=== PATIENT | female | born 1950 | race Caucasian/White ===

== ENCOUNTER 2017-02-19 14:15 | Observation (INO) | payer OTHER ==
--- NOTE | 2017-02-19 14:26 | PDOC ---
History of Present Illness - General History Source: Patient Exam Limitations: No Limitations - History of Present Illness Initial Comments: 02/19/17 14:56 The patient is a 66 year old female, with a significant past medical history of scoliosis and depression, who presents to the emergency department with the sudden onset of SOB, lightheadedness, UE and LE numbness/tingling, and nausea. The patient reports earlier today pushing on her trunk and hearing a click at the base of her skull/neck with no immediate symptoms. She reports after arriving home, having a sudden onset of increased perspirations, chills, dizziness, headache, weakness, palpitations, and UE/ LE numbness and tingling ( worse in the LEs). She reports following the event having continued symptoms with the development of SOB, fuzzy like vision, and nausea accompanied with sensations of passing out. She denies any LOC during her symptomatic episode. She reports feeling her normal baseline this morning. She denies recent fevers, or illness. She denies recent abdominal pain, vomit, diarrhea or constipation. She denies recent dysuria, frequency, urgency or hematuria. She denies recent chest pain. Upon ED arrival the patient is noted to be bradycardic, for which she was hospitalized for 2 years prior. Allergies: See Nursing Notes. Past surgical history: Tonsillectomy (over 40 years ago) Social history: Nonsmoker. Denies EtOH use and recreational drug use. Primary Care Physician: Dr. Cristofer Rodríguez <Cristofer Stewart - Last Filed: 02/19/17 15:06> - General History Source: Patient Exam Limitations: No Limitations <Silvia Murdock - Last Filed: 02/19/17 17:39> - General Stated Complaint: TINGLING TO EXTREMITIES, NAUSEA, SOB Time Seen by Provider: 02/19/17 14:18 Past History <Cristofer Stewart - Last Filed: 02/19/17 15:06> <Silvia Murdock - Last Filed: 02/19/17 17:39> - Past Medical History Allergies/Adverse Reactions: Allergies Allergy/AdvReac Type Severity Reaction Status Date / Time codeine Allergy Rapid Verified 02/19/17 14:19 heartbeat, SOB, vomiting erythromycin base Allergy Stomach Verified 02/19/17 14:19 [Erythromycin Base] cramps oxycodone HCl [From Percocet] Allergy Rapid Verified 02/19/17 14:19 heartbeat, SOB, vomiting. Dust, pollens, molds Allergy Uncoded 07/02/14 10:45 Home Medications: Ambulatory Orders Venlafaxine HCl [Effexor -] 150 mg PO DAILY 02/19/17 Review of Systems - Review of Systems Able to Perform ROS?: Yes Comments:: 02/19/17 14:28 GENERAL/CONSTITUTIONAL: . No: fever, chills, loss of appetite. HEAD, EYES, EARS, NOSE AND THROAT: No: change in vision, ear pain, discharge, sore throat, throat swelling. CARDIOVASCULAR: +lightheadedness and palpitations. No: chest pain, syncope RESPIRATORY: +SOB. No: cough, wheezing, hemoptysis, stridor. GASTROINTESTINAL: +nausea. No: vomiting, diarrhea, abdominal cramping, rectal bleeding, constipation. GENITOURINARY: No: dysuria, hematuria, frequency, urgency, flank pain. MUSCULOSKELETAL: No: back pain, neck pain, joint pain, muscle swelling or pain SKIN : No: lesions, pallor, rash or easy bruising. NEUROLOGIC: +dizziness, headache, and UE+LE tingling/numbness. No: paresthesias ENDOCRINE: No: unexplained weight gain or loss HEMATOLOGIC/LYMPHATIC: No: anemia, easy bleeding, swelling nodes. <Cristofer Stewart - Last Filed: 02/19/17 15:06> *Physical Exam - Vital Signs Last Vital Signs Temp Pulse Resp BP Pulse Ox 97.5 F L 52 L 18 117/72 100 02/19/17 14:15 02/19/17 14:15 02/19/17 14:15 02/19/17 14:15 02/19/17 14:15 - Physical Exam Comments: 02/19/17 15:02 GENERAL: The patient is in no acute distress. HEAD: Normal with no signs of trauma. EYES: PERRLA, EOMI, sclera anicteric, conjunctiva clear. ENT: Ears normal, nares patent, oropharynx clear without exudates. Moist mucous membranes. NECK: Normal range of motion, supple without lymphadenopathy, JVD, or masses. LUNGS: Breath sounds equal, clear to auscultation bilaterally. No wheezes, and no crackles. HEART: +Bradycardia. Regular rate and rhythm, normal S1 and S2 without murmur, rub or gallop. ABDOMEN: Soft, nontender, normoactive bowel sounds. No guarding, no rebound. No masses palpable. EXTREMITIES: Normal range of motion, no edema. No clubbing or cyanosis. No erythema, or tenderness. NEUROLOGICAL: Cranial nerves II through XII grossly intact. Normal speech. No focal neurological deficits. MUSCULOSKELETAL: Back non-tender to palpation, no CVA tenderness SKIN: Warm, Dry, normal turgor, no rashes or lesions noted. <Cristofer Stewart - Last Filed: 02/19/17 15:06> Heart Score/ECG Review #1 ECG reviewed & interpreted by me at: 14:23 02/19/17 14:23 Sinus rhythm, rate of 50 bpm [place] nml Sinus bradycardia No Pr prolongation No ST elevation or depression Nml T waves <Silvia Murdock - Last Filed: 02/19/17 17:39> ED Treatment Course - LABORATORY CBC & Chemistry Diagram: 02/19/17 14:25 02/19/17 14:25 <Cristofer Stewart - Last Filed: 02/19/17 15:06> - LABORATORY CBC & Chemistry Diagram: 02/19/17 14:55 02/19/17 14:55 <Silvia Murdock - Last Filed: 02/19/17 17:39> Medical Decision Making - Medical Decision Making 02/19/17 14:23 A portion of this note was documented by scribe services under my direction. I have reviewed the details of the note, within reason, and agree with the documentation with the following case summary and management plan written by me. Nursing documentation reviewed and incorporated into medical decision making 02/19/17 14:24 This is a 66 yo F with no significant past medical history, who presents to the ER with a complaint of neck pain, tingling in extremities, shortness of breath PT states she was in her usual state of health until just before arrival to the ER PT states she was closing the trunk of her car, felt something snap/crack at the base of her skull/upper neck She walked into [employer] feeling fine Was there for approximately 15-20 minutes After this, she noted weakness, sweating, tingling of her extremities, diaphoresis Since then she has had tingling in her extremities 02/19/17 15:11 Labs hemolyzed and were re sent 02/19/17 15:27 Laboratory Tests 02/19/17 02/19/17 02/19/17 14:55 14:55 14:55 WBC 6.6 D Hgb 13.8 Hct 41.3 Plt Count 208 Neutrophils % 42.9 D Lymphocytes % 46.5 H D INR 1.04 Sodium 136 Potassium 4.2 Chloride 103 Carbon Dioxide 22 BUN 14 Creatinine 0.6 Random Glucose 95 Creatine Kinase 02/19/17 14:55 WBC Hgb Hct Plt Count Neutrophils % Lymphocytes % INR Sodium Potassium Chloride Carbon Dioxide BUN Creatinine Random Glucose Creatine Kinase 64 02/19/17 15:59 Case reviewed with ELIGIO Herrera Suggests evaluation for dissection Case reviewed with Dr Mills Will send pt to MRI Admit to Hospitalist Service Case reviewed with Dr. Gilliam 02/19/17 17:23 Pt returned from MRI Reports headache Will give Tylenol IV 02/19/17 17:39 <Silvia Murdock - Last Filed: 02/19/17 17:39> *DC/Admit/Observation/Transfer - Attestations Scribe Attestion: 02/19/17 14:27 Documentation prepared by Cristofer Stewart, acting as medical reception for Silvia Murdock MD. <Cristofer Stewart - Last Filed: 02/19/17 15:06> - Discharge Dispostion Admit: Yes <Silvia Murdock - Last Filed: 02/19/17 17:39> Diagnosis at time of Disposition: Bradycardia - Discharge Dispostion Condition at time of disposition: Stable - Referrals Referrals: Cristofer Rodríguez MD [Primary Care Provider] -
[2017-02-19 15:15] LABS: BASOPHIL 0.7 % (0-2.0); EOSINOPHIL 0.8 % (0-4.5); INR 1.04 (0.82-1.09); MCH 30.6 pg (25.7-33.7); MCHC 33.5 g/dl (32.0-36.0); MEAN CELL VOLUME 91.3 fl (80-96); MEAN PLT VOLUME 9.9 fl (7.5-11.1); NEUTROPHILS 42.9 % (42.8-82.8); PLATELET COUNT 208 K/MM3 (134-434); PROTHROMBIN TIME (PATIENT) 11.6 SEC (10.2-13.0); RDW 11.7 % (11.6-15.6); WHITE BLOOD COUNT 6.6 K/mm3 (4.0-10.0)
[2017-02-19 15:22] LABS: ALBUMIN 4.1 g/dl (3.5-5.0); ALK PHOS 66 U/L (32-92); ANION GAP 11 (8-16); BILIRUBIN,TOTAL 0.6 mg/dl (0.2-1.0); CALCIUM 9.4 mg/dl (8.4-10.2); CO2 22 mmol/L (22-28); CPK(DFH) 64 IU/L (26-140); CREATININE 0.6 mg/dl (0.6-1.3); GLUCOSE,RANDOM 95 mg/dl (74-106); SGOT/AST 20 U/L (10-42); SGPT/ALT 15 U/L (10-40)
[2017-02-19 15:28] LABS: TROPONIN I (DFP) < 0.03 ng/ml (0.03-0.50)
--- NOTE | 2017-02-19 16:53 | HP ---
CHIEF COMPLAINT: PCP: HISTORY OF PRESENT ILLNESS: The patient is a 66 year old female, , who presents to the emergency department with the sudden onset of SOB, lightheadedness, UE and LE numbness/tingling, and nausea. The patient reports earlier today pushing on her trunk and hearing a click at the base of her skull/neck with no immediate symptoms. She reports after arriving home, having a sudden onset of increased perspirations, chills, dizziness, headache, weakness, palpitations, and UE/ LE numbness and tingling ( worse in the LEs). She reports following the event having continued symptoms with the development of SOB, fuzzy like vision, and nausea accompanied with sensations of passing out. She denies any LOC during her symptomatic episode. She reports feeling her normal baseline this morning. She denies recent fevers, or illness. She denies recent abdominal pain, vomit, diarrhea or constipation. She denies recent dysuria, frequency, urgency or hematuria. She denies recent chest pain. Upon ED arrival the patient is noted to be bradycardic, for which she was hospitalized for 2 years prior. I spoke with ER physician, Dr. Murdock who finds pt to have sinus luciana which appears symptomatic and might be a new onset. Pt is undergoing MRI without neck and brain with carotids for further evaluation. Cardiology consult has been placed. ER course was notable for: (1) sinus bradycardic with range 40-60 (2) head and cervical CT negative (3) scheduled for MRI brain and neck with carotids Recent Travel: PAST MEDICAL HISTORY: scoliosis and depression PAST SURGICAL HISTORY: tonisllectomy Social History: Smoking: Alcohol: Drugs: Family History: Allergies codeine Allergy (Verified 02/19/17 14:19) Rapid heartbeat, SOB, vomiting erythromycin base [Erythromycin Base] Allergy (Verified 02/19/17 14:19) Stomach cramps oxycodone HCl [From Percocet] Allergy (Verified 02/19/17 14:19) Rapid heartbeat, SOB, vomiting. Dust, pollens, molds Allergy (Uncoded 07/02/14 10:45) HOME MEDICATIONS: Home Medications Medication Instructions Recorded Venlafaxine HCl [Effexor -] 150 mg PO DAILY 02/19/17 REVIEW OF SYSTEMS CONSTITUTIONAL: Absent: fever, chills, diaphoresis, generalized weakness, malaise, loss of appetite, weight change HEENT: Absent: rhinorrhea, nasal congestion, throat pain, throat swelling, difficulty swallowing, mouth swelling, ear pain, eye pain, visual changes CARDIOVASCULAR: Absent: chest pain, syncope, irregular heart rate, perripheral edema, with + palpitations and feeling lightheadness RESPIRATORY: Absent: cough, shortness of breath, dyspnea with exertion, orthopnea, wheezing, stridor, hemoptysis GASTROINTESTINAL: Absent: abdominal pain, abdominal distension, nausea, vomiting, diarrhea, constipation, melena, hematochezia GENITOURINARY: Absent: dysuria, frequency, urgency, hesitancy, hematuria, flank pain, genital pain MUSCULOSKELETAL: Absent: myalgia, arthralgia, joint swelling, back pain, neck pain SKIN: Absent: rash, itching, pallor HEMATOLOGIC/IMMUNOLOGIC: Absent: easy bleeding, easy bruising, lymphadenopathy, frequent infections ENDOCRINE: Absent: unexplained weight gain, unexplained weight loss, heat intolerance, cold intolerance NEUROLOGIC: Absent: headache, focal weakness or paresthesias, dizziness, unsteady gait, seizure, mental status changes, bladder or bowel incontinence PSYCHIATRIC: Absent: anxiety, depression, suicidal or homicidal ideation, hallucinations. PHYSICAL EXAMINATION Vital Signs - 24 hr 02/19/17 02/19/17 14:15 16:00 Temperature 97.5 F L Pulse Rate 52 L Pulse Rate [ 51 L Left Apical] Respiratory 18 16 Rate Blood Pressure 117/72 Blood Pressure 124/76 [Right Arm] O2 Sat by Pulse 100 100 Oximetry (%) GENERAL: Awake, alert, and fully oriented, in no acute distress. HEAD: Normal with no signs of trauma. EYES: Pupils equal, round and reactive to light, extraocular movements intact, sclera anicteric, conjunctiva clear. No lid lag. EARS, NOSE, THROAT: Ears normal, nares patent, oropharynx clear without exudates. Moist mucous membranes. NECK: Normal range of motion, supple without lymphadenopathy, JVD, or masses. LUNGS: Breath sounds equal, clear to auscultation bilaterally. No wheezes, and no crackles. No accessory muscle use. HEART: Regular rate and rhythm, normal S1 and S2 without murmur, rub or gallop. ABDOMEN: Soft, nontender, not distended, normoactive bowel sounds, no guarding, no rebound, no masses. No hepatomegaly or splenomegaly. MUSCULOSKELETAL: Normal range of motion at all joints. No bony deformities or tenderness. No CVA tenderness. UPPER EXTREMITIES: 2+ pulses, warm, well-perfused. No cyanosis. No clubbing. No peripheral edema. LOWER EXTREMITIES: 2+ pulses, warm, well-perfused. No calf tenderness. No peripheral edema. NEUROLOGICAL: Cranial nerves II-XII intact. Normal speech. Normal gait. PSYCHIATRIC: Cooperative. Good eye contact. Appropriate mood and affect. SKIN: Warm, dry, normal turgor, no rashes or lesions noted, normal capillary refill. Laboratory Results - last 24 hr 02/19/17 02/19/17 02/19/17 14:25 14:25 14:25 WBC Cancelled Corrected WBC (auto) Cancelled RBC Cancelled Hgb Cancelled Hct Cancelled MCV Cancelled MCHC Cancelled RDW Cancelled Plt Count Cancelled MPV Cancelled Add Manual Diff Cancelled Neutrophils % Cancelled Lymphocytes % Cancelled Monocytes % Cancelled Eosinophils % Cancelled Basophils % Cancelled Differential Comment Cancelled Smudge Cells Cancelled Platelet Estimate Cancelled Platelet Comment Cancelled Normal RBC Morphology Cancelled RBC Morphology Cancelled INR Cancelled Sodium Cancelled Potassium Cancelled Chloride Cancelled Carbon Dioxide Cancelled Anion Gap Cancelled BUN Cancelled Creatinine Cancelled Creat Clearance w eGFR Cancelled Random Glucose Cancelled Calcium Cancelled Total Bilirubin Cancelled AST Cancelled ALT Cancelled Alkaline Phosphatase Cancelled Creatine Kinase Troponin I B-Natriuretic Peptide Cancelled Total Protein Cancelled Albumin Cancelled Anti-A Titer Blood Type Antibody Screen Spec Expiration Date 02/19/17 02/19/17 02/19/17 14:25 14:25 14:55 WBC 6.6 D Corrected WBC (auto) RBC 4.52 Hgb 13.8 Hct 41.3 MCV 91.3 MCHC 33.5 RDW 11.7 Plt Count 208 MPV 9.9 Add Manual Diff Neutrophils % 42.9 D Lymphocytes % 46.5 H D Monocytes % 9.1 Eosinophils % 0.8 Basophils % 0.7 Differential Comment Smudge Cells Platelet Estimate Platelet Comment Normal RBC Morphology RBC Morphology INR Sodium Potassium Chloride Carbon Dioxide Anion Gap BUN Creatinine Creat Clearance w eGFR Random Glucose Calcium Total Bilirubin AST ALT Alkaline Phosphatase Creatine Kinase Cancelled Troponin I Cancelled B-Natriuretic Peptide Total Protein Albumin Anti-A Titer Cancelled Blood Type Cancelled Antibody Screen Cancelled Spec Expiration Date Cancelled 02/19/17 02/19/17 02/19/17 14:55 14:55 14:55 WBC Corrected WBC (auto) RBC Hgb Hct MCV MCHC RDW Plt Count MPV Add Manual Diff Neutrophils % Lymphocytes % Monocytes % Eosinophils % Basophils % Differential Comment Smudge Cells Platelet Estimate Platelet Comment Normal RBC Morphology RBC Morphology INR 1.04 Sodium 136 Potassium 4.2 Chloride 103 Carbon Dioxide 22 Anion Gap 11 BUN 14 Creatinine 0.6 Creat Clearance w eGFR > 60 Random Glucose 95 Calcium 9.4 Total Bilirubin 0.6 D AST 20 ALT 15 D Alkaline Phosphatase 66 Creatine Kinase 64 Troponin I < 0.03 L B-Natriuretic Peptide Total Protein 7.0 Albumin 4.1 Anti-A Titer Blood Type Antibody Screen Spec Expiration Date ASSESSMENT/PLAN: This 66 yr old female with symptomatic new onset bradycardiac 1. EKG with rate 40 to 60 bradycardiac, no ectopy - first trop negative, denies chest pain -labs ordered and cbc stable 2. head and neck pain? -head and cervical CT negative for any pathology -scheduled for MRI of brain and neck/carotids and pending results 3. Admit to tele inpatient. Visit type - Emergency Visit Emergency Visit: Yes Care time: The patient presented to the Emergency Department on the above date and was hospitalized for further evaluation of their emergent condition. - New Patient This patient is new to me today: Yes Date on this admission: 02/19/17 - Critical Care Critical Care patient: No
[2017-02-19] MEDS ORDERED: ACETAMINOPHEN 1000 MG/100 ML VIAL (NON FORMULARY) IVPB ONE (17:22)
[2017-02-19] MEDS ORDERED: ACETAMINOPHEN INJECTION 100 ML IVPB ONE (17:38)
[2017-02-19 21:04] VITALS: BMI 22.9
[2017-02-20 07:33] LABS: MCH 31.3 pg (25.7-33.7); MCHC 34.2 g/dl (32.0-36.0); MEAN CELL VOLUME 91.5 fl (80-96); MEAN PLT VOLUME 9.4 fl (7.5-11.1); PLATELET COUNT 203 K/MM3 (134-434); RDW 11.8 % (11.6-15.6); WHITE BLOOD COUNT 4.9 K/mm3 (4.0-10.8)
[2017-02-20 08:08] LABS: CALCIUM 9.2 mg/dl (8.4-10.2); COCKROFT - GAULT 85.595; CREATININE 0.6 mg/dl (0.6-1.3); MAGNESIUM 1.9 mg/dL (1.8-2.4)
[2017-02-20] MEDS ORDERED: PANTOPRAZOLE 40 MG TABLET (FP) PO SCH (10:00)
[2017-02-20] MEDS ORDERED: VENLAFAXINE HCL 75 MG TABLET PO SCH (10:00)
[2017-02-20] MEDS ORDERED: PT OWN MED DRAWER 7, Y5N ONE (10:05)
[2017-02-20] MEDS ORDERED: ACETAMINOPHEN 500 MG TABLET (FP) PO PRN ×3 (10:50→12:13)
[2017-02-20 11:13] LABS: CPK(DFH) 48 IU/L (26-140)
[2017-02-20 11:21] LABS: TROPONIN I (DFP) < 0.03 ng/ml (0.03-0.50)
--- NOTE | 2017-02-20 11:21 | PN ---
Physical Exam: SUBJECTIVE: Patient seen and examined. Presented to the ED with episode dizziness, lightheadedness, headache, nausea, tingling of hands, feet and legs. She reports that she was in her usual SOH yesterday while running errands. She reached up to close the trunk, hyperextending her neck and felt a pop in her neck. 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 On her way to the car she began to not feel well. She became dizzy and lightheaded with a sensation of needing to vomit and/or have a BM. She was also diaphoretic. She drove home and began feeling worse with tingling in her hands and legs/feet. She lay down at home and when she got up her gait was unsteady as if she was on a ship and the hallway appeared much longer than it usually does. She was very tired and felt as if she needed to sleep. Her drove her to the ED. She was noted to be bradycardic upon arrival to the ED. Pt reports a similar episode of bradycardia with similar symptoms 2 years ago for which work up included a stress test and was negative. She also reports episodes of pain underneath her sternum with no precipitating factors which resolves spontaneously for the past several months, but denies any similar pain yesterday. Today on exam, she is feeling much better. No further lightheadedness, nausea, dizziness. Still with residual headache. Denies palpitations, chest pain. Review of hand woodworking sander revealed bradycardia 45-49 earlier this AM. No other ectopy noted. OBJECTIVE: Vital Signs - 24 hr 3 02/19/17 02/19/17 02/19/17 14:15 16:00 18:00 Temperature 97.5 F L 97.7 F Pulse Rate 52 L Pulse Rate [ 51 L 49 L Left Apical] Respiratory 18 16 18 Rate Blood Pressure 117/72 Blood Pressure 124/76 116/72 [Right Arm] O2 Sat by Pulse 100 100 99 Oximetry (%) 3 02/19/17 02/19/17 02/19/17 18:25 18:45 21:00 Temperature 97.4 F L 97.8 F Pulse Rate 57 L 56 L Pulse Rate [ Left Apical] Respiratory 20 17 Rate Blood Pressure 125/75 125/72 Blood Pressure [Right Arm] O2 Sat by Pulse 100 97 Oximetry (%) 3 02/19/17 02/19/17 02/20/17 22:19 22:22 06:37 Temperature 98.0 F 98.1 F Pulse Rat 57 L 50 L Pulse Rate [ Left Apical] Respiratory 18 17 Rate Blood Pressure 96/57 105/48 Blood Pressure [Right Arm] O2 Sat by Pulse 98 99 Oximetry (%) GENERAL: The patient is awake, alert, and fully oriented, in no acute distress. HEAD: Normal with no signs of trauma. EYES: PERRL, extraocular movements intact, sclera anicteric, conjunctiva clear. No ptosis. ENT: Ears normal, nares patent, oropharynx clear without exudates, moist mucous membranes. NECK: Trachea midline, full range of motion, supple. LUNGS: Breath sounds equal, clear to auscultation bilaterally, no wheezes, no crackles, no accessory muscle use. HEART: Regular rate and rhythm, S1, S2 without murmur, rub or gallop. ABDOMEN: Soft, nontender, nondistended, normoactive bowel sounds, no guarding, no rebound, no hepatosplenomegaly, no masses. EXTREMITIES: 2+ pulses, warm, well-perfused, no edema. NEUROLOGICAL: Cranial nerves II through XII grossly intact. Normal speech, gait not observed. PSYCH: Normal mood, normal affect. SKIN: Warm, dry, normal turgor, no rashes or lesions noted Laboratory Results - last 24 hr 3 02/20/17 02/20/17 07:25 07:25 WBC 4.9 RBC 4.20 Hgb 13.2 Hct 38.4 MCV 91.5 MCHC 34.2 RDW 11.8 Plt Count 203 MPV 9.4 Sodium 141 Potassium 5.1 D Chloride 109 H Carbon Dioxide 26 Anion Gap 6 L BUN 16 Creatinine 0.6 Random Glucose 94 Calcium 9.2 Phosphorus 4.0 Magnesium 1.9 Active Medications 3 Generic Name Dose Route Start Last Admin Trade Name Freq PRN Reason Stop Dose Admin Pantoprazole Sodium 40 mg 02/20/17 10:00 02/20/17 10:12 Protonix - PO 40 mg DAILY ISIDRO Administration Venlafaxine HCl 150 mg 02/20/17 10:02/20/17 10:12 Effexor - PO 150 mg DAILY ISIDRO Administration ASSESSMENT/PLAN: 66yF with a PMH scoliosis and depression presented to the ED with lightheadedness, dizziness, headache and nausea. She was admitted for symptomatic bradycardia. Bradycardia - episodes bradycardia persist on monitor but no further symptoms with the exception of headache - troponin for this am pending, spoke to lab, they are running - cardiology consult pending. depression - cont home venlafaxine GERD - cont home protonix DVT PPX - chemoprophylaxis deferred as LOS expected <48h FEN - tolerating po, no IVF - repeat labs this am WNL - regular diet Dispo: Pt currently requires inpatient observation at this time for management of her emergent condition. If cleared by cardiology, may be DC home with outpatient f/u. Visit type - Emergency Visit Emergency Visit: Yes ED Registration Date: 02/19/17 Care time: The patient presented to the Emergency Department on the above date and was hospitalized for further evaluation of their emergent condition. - New Patient This patient is new to me today: Yes Date on this admission: 02/20/17 - Critical Care Critical Care patient: No - Discharge Referral Physician Referral: Keyon Willams MD (Int Med)
--- NOTE | 2017-02-20 13:48 | CONSULT ---
Consult - text type - Consultation Consultation Note: Neurology History of Present Illness The patient is a 66 year old female, with a significant past medical history of scoliosis and depression, who presents to the emergency department with the sudden onset of SOB, lightheadedness, UE and LE numbness/tingling, and nausea along with neck pain and dizzyness. Patient completed MRI brain and MRA of neck , no dissection. No acute changes. Has had bradycardia and getting cardiology evaluation. Today, feels at baseline and no new complaints or symptoms. - General History Source: Patient Exam Limitations: No Limitations Allergies Allergy/AdvReac Type Severity Reaction Status Date / Time codeine Allergy Rapid Verified 02/19/17 14:19 heartbeat, SOB, vomiting erythromycin base Allergy Stomach Verified 02/19/17 14:19 [Erythromycin Base] cramps oxycodone HCl [From Percocet] Allergy Rapid Verified 02/19/17 14:19 heartbeat, SOB, vomiting. Dust, pollens, molds Allergy Uncoded 07/02/14 10:45 Home Medications: Ambulatory Orders Venlafaxine HCl [Effexor -] 150 mg PO DAILY 02/19/17 Review of Systems GENERAL/CONSTITUTIONAL: . No: fever, chills, loss of appetite. HEAD, EYES, EARS, NOSE AND THROAT: No: change in vision, ear pain, discharge, sore throat, throat swelling. CARDIOVASCULAR: +lightheadedness and palpitations. No: chest pain, syncope RESPIRATORY: +SOB. No: cough, wheezing, hemoptysis, stridor. GASTROINTESTINAL: +nausea. No: vomiting, diarrhea, abdominal cramping, rectal bleeding, constipation. GENITOURINARY: No: dysuria, hematuria, frequency, urgency, flank pain. MUSCULOSKELETAL: No: back pain, neck pain, joint pain, muscle swelling or pain SKIN : No: lesions, pallor, rash or easy bruising. NEUROLOGIC: +dizziness, headache, and UE+LE tingling/numbness. No: paresthesias ENDOCRINE: No: unexplained weight gain or loss HEMATOLOGIC/LYMPHATIC: No: anemia, easy bleeding, swelling nodes. *Physical Exam - Vital Signs Last Vital Signs Temp Pulse Resp BP Pulse Ox 97.5 F L 52 L 18 117/72 100 02/19/17 14:15 02/19/17 14:15 02/19/17 14:15 02/19/17 14:15 02/19/17 14:15 GENERAL: The patient is in no acute distress. HEAD: Normal with no signs of trauma. EYES: PERRLA, EOMI, sclera anicteric, conjunctiva clear. ENT: Ears normal, nares patent, oropharynx clear without exudates. Moist mucous membranes. NECK: Normal range of motion, supple without lymphadenopathy, JVD, or masses. LUNGS: Breath sounds equal, clear to auscultation bilaterally. No wheezes, and no crackles. HEART: +Bradycardia. Regular rate and rhythm, normal S1 and S2 without murmur, rub or gallop. ABDOMEN: Soft, nontender, normoactive bowel sounds. No guarding, no rebound. No masses palpable. EXTREMITIES: Normal range of motion, no edema. No clubbing or cyanosis. No erythema, or tenderness. NEUROLOGICAL: Cranial nerves II through XII grossly intact. Normal speech. No focal neurological deficits. MUSCULOSKELETAL: Back non-tender to palpation, no CVA tenderness SKIN: Warm, Dry, normal turgor, no rashes or lesions noted. CBCD WBC 4.9 K/mm3 (4.0-10.8) 02/20/17 07:25 RBC 4.20 M/mm3 (3.60-5.2) 02/20/17 07:25 Hgb 13.2 GM/dl (10.7-15.3) 02/20/17 07:25 Hct 38.4 % (32.4-45.2) 02/20/17 07:25 MCV 91.5 fl (80-96) 02/20/17 07:25 MCHC 34.2 g/dl (32.0-36.0) 02/20/17 07:25 RDW 11.8 % (11.6-15.6) 02/20/17 07:25 Plt Count 203 K/MM3 (134-434) 02/20/17 07:25 MPV 9.4 fl (7.5-11.1) 02/20/17 07:25 CMP Sodium 141 mmol/L (136-145) 02/20/17 07:25 Potassium 5.1 mmol/L (3.5-5.1) D 02/20/17 07:25 Chloride 109 mmol/L (98-107) H 02/20/17 07:25 Carbon Dioxide 26 mmol/L (22-28) 02/20/17 07:25 Anion Gap 6 (8-16) L 02/20/17 07:25 BUN 16 mg/dl (7-18) 02/20/17 07:25 Creatinine 0.6 mg/dl (0.6-1.3) 02/20/17 07:25 Creat Clearance w eGFR > 60 (>60) 02/19/17 14:55 Calcium 9.2 mg/dl (8.4-10.2) 02/20/17 07:25 Total Bilirubin 0.6 mg/dl (0.2-1.0) D 02/19/17 14:55 AST 20 U/L (10-42) 02/19/17 14:55 ALT 15 U/L (10-40) D 02/19/17 14:55 Alkaline Phosphatase 66 U/L (32-92) 02/19/17 14:55 Total Protein 7.0 g/dl (6.4-8.3) 02/19/17 14:55 Albumin 4.1 g/dl (3.5-5.0) 02/19/17 14:55 Medical Decision Making 66 year old female, with a significant past medical history of scoliosis and depression, who presents to the emergency department with the sudden onset of SOB, lightheadedness, UE and LE numbness/tingling, and nausea along with neck pain and dizzyness. Patient completed MRI brain and MRA of neck, no dissection. No acute changes. Has had bradycardia and getting cardiology evaluation. Today, feels at baseline and no new complaints or symptoms. Neurologically stable, no further rec'd at this time.
[2017-02-20 14:22] VITALS: BP 101/62; PULSE 57; TEMP 98.5
--- NOTE | 2017-02-20 16:27 | CON.CARD ---
Cardiology Consult (text) - Consultation Consultation Note: CC: bradycardia 66 year old female, with h/o depression presents to the emergency department with the sudden onset of SOB, lightheadedness, UE and LE numbness/tingling, and nausea and noted to be bradycardic. States she was at store earlier today and stood on line for about 20 minutes. Walked to her car and noted some neck discomfort after pushing on trunk of her car. On drive home she developed chills, dizziness, headache, weakness, , and UE/ LE numbness and tingling (worse in the LEs). She reports following the event symptoms continued with development of SOB, fuzzy like vision, fatigue, diaphoresis, nausea and presyncope. She denies any LOC during her symptomatic episode. She denies recent fevers, or illness. decreased po intake although recently has been dieting. She denies recent abdominal pain, vomit, diarrhea. She denies recent cp, orthopnea, palps, le edema, claudication, bleeding. Upon ED arrival the patient is noted to be bradycardic. Had prior similar episode of bradycardia with similar symptoms 2 years ago for which work up included a negative stress test. Today asx despite remaining bradycardic on telemetry. PAST MEDICAL HISTORY: scoliosis and depression PAST SURGICAL HISTORY: tonisllectomy Social History: Nonsmoker. Denies EtOH use and recreational drug use. Fam hx: no premature cad or arrhythmias, scd ROS: per hpi, additionally no fevers, rashes, cough, nasal congesiton. + headache HOME MEDICATIONS: Home Medications Medication Instructions Recorded Venlafaxine HCl [Effexor -] 150 mg PO DAILY 02/19/17 Active Medications 3 Generic Name Dose Route Start Last Admin Trade Name Freq PRN Reason Stop Dose Admin Pantoprazole Sodium 40 mg 02/20/17 10:00 02/20/17 10:12 Protonix - PO 40 mg DAILY ISIDRO Administration Venlafaxine HCl 150 mg 02/20/17 10:00 02/20/17 10:12 Effexor - PO 150 mg DAILY ISIDRO Administration Vital Signs - 24 hr 02/19/17 02/19/17 02/19/17 18:00 18:25 18:45 Temperature 97.7 F 97.4 F L 97.8 F Pulse Rate 57 L 56 L Pulse Rate [ 49 L Left Apical] Respiratory 18 20 17 Rate Blood Pressure 125/75 125/72 Blood Pressure 116/72 [Right Arm] O2 Sat by Pulse 99 100 Oximetry (%) 02/19/17 02/19/17 02/19/17 21:00 22:19 22:22 Temperature 98.0 F Pulse Rate 57 L Pulse Rate [ Left Apical] Respiratory 18 Rate Blood Pressure 96/57 Blood Pressure [Right Arm] O2 Sat by Pulse 97 98 Oximetry (%) 02/20/17 02/20/17 02/20/17 06:37 09:00 14:21 Temperature 98.1 F 98.5 F Pulse Rate 50 L 57 L Pulse Rate [ Left Apical] Respiratory 17 17 18 Rate Blood Pressure 105/48 101/62 Blood Pressure [Right Arm] O2 Sat by Pulse 99 99 97 Oximetry (%) Intake & Output 02/18/17 02/19/17 02/20/17 02/21/17 07:59 07:59 07:59 07:59 Weight 128 lb NAD, calm JVD flat, neck supple ctab, nl effort rrr nl s1, s2 no mrg + bs soft nt nd ext without e/c/c + dp/pt aaox3 no jaundice, diaphoresis. CBC, BMP 02/20/17 07:25 02/20/17 07:25 Laboratory Tests 02/19/17 02/19/17 02/20/17 14:55 14:55 07:25 Magnesium 1.9 Total Bilirubin 0.6 D AST 20 ALT 15 D Alkaline Phosphatase 66 Troponin I < 0.03 L B-Natriuretic Peptide 27.67 Albumin 4.1 02/20/17 07:25 Magnesium Total Bilirubin AST ALT Alkaline Phosphatase Troponin I < 0.03 L B-Natriuretic Peptide Albumin Laboratory Tests 02/19/17 02/19/17 02/20/17 14:55 14:55 07:25 Magnesium 1.9 Total Bilirubin 0.6 D AST 20 ALT 15 D Alkaline Phosphatase 66 Creatine Kinase 64 Troponin I < 0.03 L B-Natriuretic Peptide 27.67 Albumin 4.1 Lyme Screen IgG & IgM 02/20/17 02/20/17 07:25 18:30 Magnesium Total Bilirubin AST ALT Alkaline Phosphatase Creatine Kinase 48 Troponin I < 0.03 L B-Natriuretic Peptide Albumin Lyme Screen IgG & IgM <0.91 EKG SB 44 bpm tele: SB now improved to SR in 60's. 66 year old female, with h/o depression presents to the emergency department with the sudden onset of SOB, lightheadedness, UE and LE numbness/tingling, and nausea and noted to be bradycardic. Bradycardia - preceding symptoms appear vasovagal and occurred after prolonged standing --> likely triggered bradycardia. Earlier today still bradycardia and asymptomatic and so low suscpicion that presyncope symptoms were 2/2 heart rate. - rate now improving. - would complete workup with TSH and lyme. TSH slightly elevated, can follow up as outpatient. - recommend outpatient follow up with cardiology for further evaluation - stable for d/c from CV perspective.
--- NOTE | 2017-02-21 16:09 | EKG ---
Test Reason : Blood Pressure : / mmHG Vent. Rate : 044 BPM Atrial Rate : 044 BPM P-R Int : 162 ms QRS Dur : 096 ms QT Int : 470 ms P-R-T Axes : 036 027 025 degrees QTc Int : 401 ms MARKED SINUS BRADYCARDIA NO PREVIOUS ECGS AVAILABLE Confirmed by DIGNA TENORIO MD ([id number] on 02/21/2017 4:09:17 PM Referred By: SUSAN CAMPBELL Confirmed By:DIGNA TENORIO MD
== END 2017-02-20 19:05 | disposition home or self-care (01) ==
LOC: FER 14:15 → INTOOBSV 17:48 → FM/S 17:48 → UNDOADMOB 17:48 → FM/S 18:00
PROVIDERS: ADMIT Internal Medicine; ATTEND Internal Medicine
PROC: 3E033GC Introduction of Other Therapeutic Substance into Peripheral Vein, Percutaneous Approach (ICD-10-PCS; principal; 2017-02-19)
DX: R00.1 Bradycardia, unspecified (principal); M41.9 Scoliosis, unspecified; F32.9 Major depressive disorder, single episode, unspecified; K21.9 Gastro-esophageal reflux disease without esophagitis; Z88.1 Allergy status to other antibiotic agents; Z88.5 Allergy status to narcotic agent
CPT/HCPCS: 36415; 70450-TC; 70547-TC; 70551-TC; 72125-TC; 80048; 80053; 82550; 83735; 83880; 84100; 84443; 84484; 85025; 85027; 85610; 86618; 86850; 86900; 86901; 93005; 99285-25; G0378

== ENCOUNTER 2020-10-11 10:29 | Emergency (ER) | payer OTHER | END 2020-10-11 11:35 | disposition home or self-care (01) | LOC: JVIRT 10:29 | DX: Z11.59 Encounter for screening for other viral diseases (principal) | CPT/HCPCS: C9803; G2012-GT; U0003 ==

== ENCOUNTER 2020-11-05 13:33 | Emergency (ER) | payer OTHER | END 2020-11-05 13:46 | disposition home or self-care (01) | LOC: JVIRT 13:33 | DX: Z11.59 Encounter for screening for other viral diseases (principal) | CPT/HCPCS: C9803; G2012-GT; Q3014-GT; U0003 ==

== ENCOUNTER 2021-10-30 12:45 | Emergency (ER) | payer OTHER ==
[2021-10-30 13:13] VITALS: BP 145/86; PULSE 56; TEMP 97.8; BMI 25.0
[2021-10-31 13:06] LABS: SARS-CoV-2 NAA Not Detected (Not Detected)
== END 2021-10-30 13:30 | disposition home or self-care (01) ==
LOC: FER 12:45
DX: J06.9 Acute upper respiratory infection, unspecified (principal)
CPT/HCPCS: 99283-25; C9803; U0003; U0005

== ENCOUNTER 2023-09-09 20:37 | Emergency (ER) | payer OTHER ==
[2023-09-09 21:21] VITALS: BP 137/88; PULSE 64; RESP 16; TEMP 97.4; BMI 25.4
[2023-09-09] MEDS ORDERED: ONDANSETRON 4 MG/2 ML VIAL IVPUSH ONE (22:05)
[2023-09-09] MEDS ORDERED: ONDANSETRON 4 MG/2 ML VIAL ONE (22:07)
[2023-09-09 22:26] LABS: HEMATOCRIT 39.1 % (32.4-45.2); HEMOGLOBIN 13.3 G/dL (10.7-15.3); MCH 32.4 pg (25.7-33.7); MCHC 34.1 g/dl (32.0-36.0); MEAN CELL VOLUME 95.2 fl (80-96); MEAN PLT VOLUME 8.7 fl (7.5-11.1); PLATELET COUNT 225.2 10^3/uL (134-434); RBC 4.11 10^6/uL (3.60-5.2); RDW 13.1 % (11.6-15.6); WHITE BLOOD COUNT 6.5 10^3/uL (4.0-10.8)
[2023-09-09] MEDS ORDERED: KETOROLAC TROMETHAMINE 30 MG/1 ML VIAL IVPUSH ONE (22:34)
[2023-09-09 22:58] LABS: PLATELET ESTIMATE ADEQUATE
[2023-09-09 23:01] LABS: ALBUMIN 3.8 g/dl (3.4-5.0); BILIRUBIN,TOTAL 0.3 mg/dl (0.2-1); CALCIUM 8.8 mg/dl (8.5-10.1); CREATININE 0.7 mg/dl (0.6-1.3); POTASSIUM 3.6 mmol/L (3.5-5.1); TOT PROT 5.8 g/dl (6.4-8.2)
[2023-09-09] MEDS ORDERED: MECLIZINE HCL 25 MG TABLET (FP) PO ONE (23:01)
[2023-09-09] MEDS ORDERED: MECLIZINE HCL 25 MG TABLET (FP) ONE (23:02)
[2023-09-09] MEDS ORDERED: KETOROLAC TROMETHAMINE 15 MG/ML VIAL ONE (23:02)
[2023-09-09] MEDS ORDERED: ACETAMINOPHEN 1000 MG/100 ML BAG IVPB ONE (23:30)
[2023-09-09] MEDS ORDERED: ACETAMINOPHEN INJECTION 100 ML IVPB ONE (23:32)
[2023-09-10] MEDS ORDERED: predniSONE 20 MG TABLET (UD) PO ONE (00:25)
[2023-09-10] MEDS ORDERED: predniSONE 20 MG TABLET (UD) ONE (00:28)
[2023-09-10] MEDS ORDERED: AMOXICILLIN ORAL SUSPENSION - 250 MG/5 ML PO ONE (00:59)
== END 2023-09-10 01:02 | disposition home or self-care (01) ==
LOC: FER 20:37
PROC: 3E033NZ Introduction of Analgesics, Hypnotics, Sedatives into Peripheral Vein, Percutaneous Approach (ICD-10-PCS; principal; 2023-09-09)
PROC: 3E033GC Introduction of Other Therapeutic Substance into Peripheral Vein, Percutaneous Approach (ICD-10-PCS; 2023-09-09)
PROC: 3E033GC Introduction of Other Therapeutic Substance into Peripheral Vein, Percutaneous Approach (ICD-10-PCS; 2023-09-09)
DX: R51.9 Headache, unspecified (principal)
CPT/HCPCS: 36415; 70450-TC; 80053; 85027; 85651; 86140